=== PATIENT | female | born 1980 | race Caucasian/White ===

== ENCOUNTER 2021-07-16 12:28 | Inpatient (IN) | payer BC ==
[2021-07-16 15:39] LABS: #Monocytes 0.5 10x3/uL (0.0-1.1); #Neutrophils 8.4 10x3/uL (1.5-8.4); %Basophils 0.3 % (0.0-2.0); %Eosinophils 0.4 % (0.0-6.0); %Lymphocytes 15.5 % (18.0-47.0); %Monocytes 4.5 % (0.0-10.0); %Neutrophils 79.1 % (40.0-75.0); Hemoglobin 13.8 g/dL (12.0-15.5); Mean Corpuscular HGB CONC 31.8 g/dL (32.0-36.0); Mean Corpuscular Hemoglobin 30.3 pg (27.0-33.0); Mean Corpuscular Volume 95.4 fl (81.6-98.3); Mean Platelet Volume 11.8 fl (7.4-10.4); Platelet Count 193 10x3/uL (150-450); RBC Distribution Width 12.5 % (11.5-14.5); Red Blood Cell (RBC) Count 4.55 10x6/uL (3.90-5.03); White Blood Cell (WBC) Count 10.6 10x3/uL (3.5-10.5)
[2021-07-16 15:43] LABS: Bilirubin 1+ (Negative); Blood, Urine Negative (Negative); Clarity Clear (Clear); Glucose, Urine (Dipstick) Normal (Negative); Ketone, Urine Negative (Negative); Leukocyte 25 (Negative); Nitrite Negative (Negative); Protein, Urine (Dipstick) Negative (Neg-Trace); Specific Gravity, Urine 1.015 (1.002-1.036); Urobilinogen 12 mg/dL (Less than 2)
[2021-07-16 15:45] LABS: BHCG - Serum Negative (NEGATIVE); Pregs Control Background? CLEAR/WHITE (CLR/WHITE); Pregs Control Bar Appear? YES (CONTROL BAR)
[2021-07-16 15:54] LABS: ALT (SGPT) 78 U/L (8-55); AST (SGOT) 121 U/L (5-34); Alkaline Phosphatase 104 U/L (40-110); Anion Gap 11 mmol/L (10-20); BUN (Urea Nitrogen) 10 mg/dL (7.0-18.7); Bilirubin, Total 3.2 mg/dL (0.2-1.2); Calc. Creatinine Clearance 0 mL/min (70-130); Calcium 9.1 mg/dL (7.8-10.44); Carbon Dioxide 25 mmol/L (22-29); Chloride 108 mmol/L (98-107); Globulin 2.8 g/dL (2.4-3.5); Glucose 91 mg/dL (70-105); Lipase 14 U/L (8-78); Potassium 4.2 mmol/L (3.5-5.1); Protein, Total 6.8 g/dL (6.0-8.3); Sodium 140 mmol/L (136-145)
[2021-07-16 15:56] LABS: Bacteria/HPF 2+ HPF (None Seen); Mucous/LPF Few LPF (<2+); RBC/HPF 0-3 HPF (0-3); WBC/HPF 0-3 HPF (0-3)
[2021-07-16 20:31] LABS: SARS-CoV-2 NAA Rapid Test Not Detected (NotDetected)
[2021-07-16 21:32] VITALS: BMI 36.0
[2021-07-16] MEDS ORDERED: Ondansetron PF 4 MG/2 ML Vial IVP PRN (23:28)
[2021-07-16] MEDS ORDERED: Morphine 4 MG/ML VIAL SLOW IVP PRN (23:28)
[2021-07-16] MEDS ORDERED: Piperacillin/Tazobactam 3.375 GM in Sodium Chloride 0.9% 100 ML IVPB SCH (23:30)
[2021-07-16] MEDS ORDERED: Lactated Ringer's 1,000 ML IV SCH (23:30)
[2021-07-17 00:41] LABS: HBCM Index 0.14 S/CO (0-0.79); HBSAg Index 0.27 S/CO (0-0.99); Hep A IgM AB Non-Reactive (NonReactive); Hep A IgM S/CO 0.26 S/CO (0-0.79); Hep B Surf Ag Non-Reactive S/CO (NonReactive); Hep C IgG Ab Non-Reactive (NonReactive); Hepatitis B Core IgM Abs Non-Reactive (NonReactive)
[2021-07-17] MEDS ORDERED: FLU VACC QS2021-22(6MOS UP)/PF 60 MCG/0.5 ML SYRINGE IM ONE (01:30)
[2021-07-17] MEDS ORDERED: Prevnar 13-Val Conj/PF 0.5 ML SYRINGE IM ONE (01:30)
[2021-07-17] MEDS ORDERED: Piperacillin/Tazobactam 3.375 GM in Sodium Chloride 0.9% 100 ML IVPB SCH (04:00)
[2021-07-17 05:57] LABS: #Eosinphils 0.2 10x3/uL (0.0-0.5); #Monocytes 0.5 10x3/uL (0.0-1.1); %Basophils 0.5 % (0.0-2.0); %Eosinophils 1.9 % (0.0-6.0); %Lymphocytes 28.1 % (18.0-47.0); %Monocytes 6.4 % (0.0-10.0); %Neutrophils 62.8 % (40.0-75.0); Hemoglobin 12.6 g/dL (12.0-15.5); Mean Corpuscular HGB CONC 32.3 g/dL (32.0-36.0); Mean Corpuscular Hemoglobin 30.6 pg (27.0-33.0); Mean Corpuscular Volume 94.7 fl (81.6-98.3); Mean Platelet Volume 12.1 fl (7.4-10.4); Platelet Count 168 10x3/uL (150-450); RBC Distribution Width 12.5 % (11.5-14.5); Red Blood Cell (RBC) Count 4.12 10x6/uL (3.90-5.03)
[2021-07-17 06:13] LABS: ALT (SGPT) 77 U/L (8-55); AST (SGOT) 68 U/L (5-34); Albumin 3.5 g/dL (3.5-5.0); Alkaline Phosphatase 108 U/L (40-110); Anion Gap 11 mmol/L (10-20); BUN (Urea Nitrogen) 10 mg/dL (7.0-18.7); Bilirubin, Total 3.1 mg/dL (0.2-1.2); Calc. Creatinine Clearance 149 mL/min (70-130); Calcium 8.5 mg/dL (7.8-10.44); Carbon Dioxide 23 mmol/L (22-29); Chloride 109 mmol/L (98-107); Globulin 2.1 g/dL (2.4-3.5); Glucose 80 mg/dL (70-105); Potassium 3.9 mmol/L (3.5-5.1); Protein, Total 5.6 g/dL (6.0-8.3); Sodium 139 mmol/L (136-145)
[2021-07-17] MEDS ORDERED: Calcium Carbonate 500 MG ChewTAB PO PRN (10:00)
[2021-07-17] MEDS ORDERED: Dextrose 50% Abboject 50 ML SYRINGE SLOW IVP PRN (10:00)
[2021-07-17] MEDS ORDERED: Dextrose 5% in Water 1,000 ML IV PRN (10:00)
[2021-07-17] MEDS ORDERED: Promethazine HCl 25 MG/ML VIAL IM PRN (10:00)
[2021-07-17] MEDS ORDERED: Mag-Al 1200 mg/1200 mg/30 ML UDCUP PO PRN (10:00)
[2021-07-17] MEDS ORDERED: Ondansetron PF 4 MG/2 ML Vial IVP PRN (10:00)
[2021-07-17] MEDS ORDERED: hydrALAZINE 20 MG/ML VIAL SLOW IVP PRN (10:00)
[2021-07-17] MEDS: Lactated Ringer's 1,000 ML IV SCH ×2 (10:10→17:15)
[2021-07-17] MEDS: Piperacillin/Tazobactam 3.375 GM in Sodium Chloride 0.9% 100 ML IVPB SCH ×2 (11:25→18:28)
[2021-07-17] MEDS ORDERED: Lidocaine 1% PF 5 ML VIAL ONE (12:56)
[2021-07-17] MEDS ORDERED: Fentanyl 100 MCG/2 ML VIAL ONE ×3 (12:56→15:18)
[2021-07-17] MEDS ORDERED: PROPOFOL 20 ML ONE (12:56)
[2021-07-17] MEDS ORDERED: Rocuronium Bromide 10 MG/ML (10ML VIAL) ONE (12:56)
[2021-07-17] MEDS ORDERED: Dexamethasone 4 mg/ml Vial ONE (12:57)
[2021-07-17] MEDS ORDERED: Ondansetron PF 4 MG/2 ML Vial ONE (12:57)
[2021-07-17] MEDS ORDERED: Ketorolac Tromethamine 30 MG/ML VIAL ONE (12:57)
[2021-07-17] MEDS ORDERED: Bupivacaine PF 0.5% 30 ML VIAL ONE (13:03)
[2021-07-17] MEDS ORDERED: Iopamidol 15 ML ONE ×2 (13:03→14:11)
[2021-07-17] MEDS ORDERED: Midazolam HCl 2 mg/2 ml Vial ONE (13:24)
[2021-07-17] MEDS ORDERED: EPINEPHrine 1 MG/ML AMP ONE (13:55)
[2021-07-17] MEDS ORDERED: Iopamidol 30 ML ONE (14:22)
[2021-07-17] MEDS ORDERED: Glycopyrrolate 0.2 MG/ML 5 ML SYRINGE ONE (14:42)
[2021-07-17] MEDS ORDERED: HYDROcodone/Acetaminophen 5/325 mg Tablet PO PRN ×2 (15:46)
[2021-07-17] MEDS: Morphine 4 MG/ML VIAL SLOW IVP PRN ×3 (16:10→20:49)
[2021-07-17] MEDS ORDERED: Indomethacin 50 MG SUPP PR SCH (18:30)
[2021-07-17] MEDS: Famotidine 20 MG TAB PO SCH (20:49)
[2021-07-17] MEDS: Famotidine/PF 20 mg/2ml Vial SLOW IVP SCH (23:30)
[2021-07-18] MEDS: Piperacillin/Tazobactam 3.375 GM in Sodium Chloride 0.9% 100 ML IVPB SCH ×3 (02:44→17:51)
[2021-07-18] MEDS: Morphine 4 MG/ML VIAL SLOW IVP PRN ×3 (03:04→22:31)
[2021-07-18] MEDS: Lactated Ringer's 1,000 ML IV SCH ×3 (05:37→20:15)
[2021-07-18] MEDS: Famotidine/PF 20 mg/2ml Vial SLOW IVP SCH ×2 (08:44→20:13)
[2021-07-18] MEDS: Famotidine 20 MG TAB PO SCH ×2 (08:44→21:00)
[2021-07-18] MEDS ORDERED: SUGAMMADEX SODIUM 200 MG/2 ML VIAL ONE (13:23)
[2021-07-18] MEDS ORDERED: PROPOFOL 20 ML ONE (13:24)
[2021-07-18] MEDS ORDERED: Rocuronium Bromide 10 MG/ML (10ML VIAL) ONE (13:25)
[2021-07-18] MEDS ORDERED: Dexamethasone 4 mg/ml Vial ONE (13:25)
[2021-07-18] MEDS ORDERED: Lidocaine 1% PF 5 ML VIAL ONE (13:25)
[2021-07-18] MEDS ORDERED: Midazolam HCl 2 mg/2 ml Vial ONE (13:25)
[2021-07-18] MEDS ORDERED: Ondansetron PF 4 MG/2 ML Vial ONE (13:25)
[2021-07-18] MEDS ORDERED: Fentanyl 100 MCG/2 ML VIAL ONE (13:25)
[2021-07-18] MEDS ORDERED: Indomethacin 50 MG SUPP PR SCH (13:45)
[2021-07-18] MEDS ORDERED: Iopamidol 15 ML ONE (14:32)
[2021-07-19] MEDS: Piperacillin/Tazobactam 3.375 GM in Sodium Chloride 0.9% 100 ML IVPB SCH (02:13)
[2021-07-19] MEDS: Lactated Ringer's 1,000 ML IV SCH (03:40)
[2021-07-19 07:23] VITALS: BP 114/57; TEMP 97.5
[2021-07-19] MEDS: Famotidine 20 MG TAB PO SCH (08:04)
[2021-07-19] MEDS: Famotidine/PF 20 mg/2ml Vial SLOW IVP SCH (08:05)
== END 2021-07-19 09:40 | disposition home or self-care (01) | DRG 419 ==
LOC: CSHERS 12:28 → CSHTELE 12:29 → OBSVTOIN 07-18 09:41
PROVIDERS: ADMIT Surgery; ATTEND Surgery
PROC: 0FT44ZZ Resection of Gallbladder, Percutaneous Endoscopic Approach (ICD-10-PCS; principal; 2021-07-17)
PROC: 0WQF4ZZ Repair Abdominal Wall, Percutaneous Endoscopic Approach (ICD-10-PCS; 2021-07-17)
PROC: BF131ZZ Fluoroscopy of Gallbladder and Bile Ducts using Low Osmolar Contrast (ICD-10-PCS; 2021-07-17)
PROC: 0FC98ZZ Extirpation of Matter from Common Bile Duct, Via Natural or Artificial Opening Endoscopic (ICD-10-PCS; 2021-07-18)
DX: K80.42 Calculus of bile duct with acute cholecystitis without obstruction (principal); K42.9 Umbilical hernia without obstruction or gangrene; Z20.822 Contact with and (suspected) exposure to COVID-19; Z98.84 Bariatric surgery status; Z88.8 Allergy status to other drugs, medicaments and biological substances
CPT/HCPCS: 36415; 47532; 74177; 74330; 76000; 76705; 80053; 80074; 81003; 81015; 83690; 84703; 85025; 88304; 96374; 96375; 96376; G0378; J0171; J1100; J1610; J1885; J2250; J2270; J2405; J2543; J2704; J3010; J3490; J7120; Q9967; S0020; S0028; U0002